=== PATIENT | female | born 1990 | race African-American/Black ===

== ENCOUNTER → 2019-09-14 | Emergency (ER) | payer MEDICAID, OTHER ==
[~2019-09-14] VITALS: Ht 154.9 cm; Wt 97.0 kg
[~2019-09-14] MED LIST: AZITHROMYCIN 500 MG TABLET PO ONE; IPRATROPIUM/ALBUTEROL 0.5-3(2.5)MG/3ML NEB HHN ONE; PREDNISONE 20MG TABLET PO STA; albuterol
[2019-09-15 01:37] VITALS: BP 130/73
== END | disposition home or self-care (01) ==
LOC: ER 23:32
DX: R05 Cough (principal); J02.9 Acute pharyngitis, unspecified; J45.909 Unspecified asthma, uncomplicated; Z90.49 Acquired absence of other specified parts of digestive tract; Z98.51 Tubal ligation status; Z88.0 Allergy status to penicillin
CPT/HCPCS: 81025; 87804; 99283; J7512

== ENCOUNTER 2020-06-11 16:49 | Emergency (ER) | payer MEDICAID ==
[~2020-06-11 16:49] MED LIST changes: -AZITHROMYCIN 500 MG TABLET PO ONE; -IPRATROPIUM/ALBUTEROL 0.5-3(2.5)MG/3ML NEB HHN ONE; -PREDNISONE 20MG TABLET PO STA
== END 2020-06-11 17:19 | disposition left against medical advice (07) ==
LOC: ER 16:49
DX: Z53.21 Procedure and treatment not carried out due to patient leaving prior to being seen by health care provider (principal); Z88.0 Allergy status to penicillin

== ENCOUNTER 2021-04-16 19:32 | Emergency (ER) | payer MEDICAID ==
[~2021-04-16] VITALS: Ht 154.9 cm; Wt 96.0 kg
[2021-04-16 19:39] VITALS: BP 117/79
== END 2021-04-16 21:14 | disposition left against medical advice (07) ==
LOC: ER 19:32
DX: Z53.21 Procedure and treatment not carried out due to patient leaving prior to being seen by health care provider (principal); I49.9 Cardiac arrhythmia, unspecified
CPT/HCPCS: 93005